=== PATIENT | female | born 1950 | race Caucasian/White ===

== ENCOUNTER → 2021-04-20 | Outpatient (CLI) | payer MEDICARE, OTHER ==
[~2021-04-20] MED LIST: ALDACTONE25 MG PO; BETAPACE 80MG T80 MG PO; BETAPACE80 MG PO; BUSPAR 5MG TABLE5 MG PO; CARDIZEM CD240 MG PO; CLARITIN10 MG PO; CLINDAMYCIN HC300 MG PO; CRESTOR10 MG PO; CYMBALTA60 MG PO; DULERA 200 MCG8.8 GM INH; ECOTRIN81 MG PO; ELIQUIS5 MG PO; ENTRESTO 24 MG1 EACH PO; ENTRESTO 49 MG1 EACH PO; GLUCOPHAGE1000 MG PO; GLUCOPHAGE500 MG PO; IMDUR ER TAB 3030 MG PO; JANUVIA100 MG PO; JARDIANCE10 MG PO; LASIX20 MG PO; LEVAQUIN500 MG PO; LOPRESSOR 25 MG25 MG PO; LYRICA200 MG PO; MULTAQ 400 MG400 MG PO; MYCOLOG II CREA15 GM TOP; NORCO 5-325 TA1 EACH PO; PRINIVIL5 MG PO; PROAIR HFA8.5 GM INH; SOTALOL120 MG PO; TOPROL XL25 MG PO; TRICOR48 MG PO; VENTOLIN HFA 66.7 GM INH; XARELTO20 MG PO; ZANTAC150 MG PO; ZESTRIL2.5 MG PO; ZYRTEC10 MG PO
== END ==
LOC: HEART 5 13:00
DX: I42.0 Dilated cardiomyopathy (principal); R06.02 Shortness of breath; I08.3 Combined rheumatic disorders of mitral, aortic and tricuspid valves
CPT/HCPCS: 93306